=== PATIENT | male | born 1945 | race Caucasian/White ===

== ENCOUNTER → 2021-03-02 11:28 | Outpatient (CLI) | payer OTHER, SELFPAY ==
--- NOTE | ~2021-03-02 | XR_ITS ---
EXAMINATION: XR knee LT min 4V DATE: 03/02/2021 12:04 INDICATION: Left knee pain TECHNIQUE: Four views of the left knee were obtained. COMPARISON: None. FINDINGS: Alignment is normal. No fracture or osteochondral lesion. There is advanced osteoarthritis of the medial and patellofemoral compartments. A small joint effusion is present. Soft tissues are un remarkable. IMPRESSION: 1. 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 Reviewed, dictated and finalized at location A.
== END ==
PROVIDERS: PCP Family Medicine Adolescent Medicine; Visit Provider Family Medicine Adolescent Medicine
DX: M17.12 Unilateral primary osteoarthritis, left knee (principal)
CPT/HCPCS: 73564

== ENCOUNTER 2021-03-30 09:42 | Emergency (ER) | payer OTHER, SELFPAY ==
--- NOTE | ~2021-03-30 | XR_ITS ---
EXAMINATION: XR chest 2V DATE: 03/30/2021 10:24 INDICATION: Central chest pain. TECHNIQUE: Frontal and lateral views of the chest were obtained. COMPARISON: Chest 2 views 10/09/2017, chest CT 10/09/2017 FINDINGS: The chest demonstrates clear lungs without pneumonia, pleural effusion, or pneumothorax. Th e heart size is normal. IMPRESSION: 1. No acute cardiopulmonary disease. Reviewed, dictated and finalized at location A.
--- NOTE | 2021-03-30 09:47 | ECG_ITS ---
Measurements Intervals [place] Rate: 60 P: 34 ID: [id number] QRS: -34 QRSD: 98 T: 21 QT: 400 QTc: 400 Interpretive Statements SINUS RHYTHM LEFT AXIS DEVIATION INCOMPLETE RIGHT BUNDLE BRANCH BLOCK BORDERLINE ECG Electronically Signed On 03-30-2021 14:53:35 CDT by Sánchez Kellogg D.O.
[2021-03-30 09:54] VITALS: BP 140/69; PULSE 65; RESP 14; TEMP 36.1; O2SAT 97
[2021-03-30 10:19] LABS: Basophils Percent Auto 0.5 % (0.2-1.2); Eosinophils Absolute Auto 0.3 K/mm3 (0-0.3); Eosinophils Percent Auto 5.1 % (0-4.4); Hematocrit 46.4 % (42.0-52.0); Hemoglobin 15.6 g/dL (14.0-18.0); Immature Granulocyte Absolute 0.01 K/mm3 (0.00-0.031); Immature Granulocyte Percent A 0.2 % (0-0.5); Lymphocytes Absolute Auto 2.05 K/mm3 (0.9-3.2); Lymphocytes Percent Auto 33.8 % (18.3-44.2); Mean Corpuscular HGB Conc 33.6 g/dl (32-36); Mean Corpuscular Volume 89.2 fl (80-100); Mean Platelet Volume 9.6 fl (7.4-10.4); Monocytes Absolute Auto 0.5 K/mm3 (0.1-0.6); Monocytes Percent Auto 7.8 % (2.6-8.5); Neutrophils Absolute Auto 3.2 K/mm3 (1.3-6.7); Neutrophils Percent Auto 52.6 % (45.5-73.1); Platelet Count Result 218 k/mm3 (150-375); White Blood Count 6.1 K/mm3 (4.5-10.0)
[2021-03-30 10:27] LABS: Anion Gap 9 mmol/L (8-16); Blood Urea Nitrogen 15 mg/dL (9-20); Calcium 8.9 mg/dL (8.4-10.2); Carbon Dioxide 23 mmol/L (22-30); Chloride 106 mmol/L (98-107); Estimated CRCL calculation 85 ml/min; Estimated Glomerular Filt Rate > 60; Glucose 135 mg/dL (65-110); Sodium 138 mmol/L (137-145)
[2021-03-30 10:31] LABS: INR 0.9; Prothrombin Time 11.8 Seconds (11.1-14.7)
[2021-03-30 10:38] LABS: Troponin I < 0.012 ng/mL (0.000-0.034)
[2021-03-30 12:24] VITALS: BP 155/80; PULSE 55; RESP 14; O2SAT 99
[2021-03-30 12:28] VITALS: BP 186/77; PULSE 54; RESP 18; TEMP 36.7; O2SAT 100
--- NOTE | 2021-03-30 12:34 | ED.CHESTPAIN ---
HPI - Chest Pain General Chief Complaint: Chest Pain Stated Complaint: Chest pain Time Seen by Provider: 03/30/21 12:33 History of Present Illness HPI narrative: 75 yo male w/ h/o CAD presents to the ED c/o chest pain. Dull chest pain since the middle of the night. Mild. No radiation. Does not change with exertion. Does not feel like previous anginal pain. No SOB, nausea, diaphoresis. He took aspirin prior to coming in. Related Data Allergies Allergy/AdvReac Type Severity Reaction Status Date / Time No Known Allergies Allergy Verified 03/30/21 12:27 Review of Systems Review of Systems: All systems reviewed & are unremarkable except as noted in HPI and below Constitutional: Constitutional: Denies chills and Denies fever(s) Cardiovascular: Cardiovascular: Reports as per HPI Respiratory: Respiratory: Denies dyspnea Gastrointestinal: Gastrointestinal: Denies nausea Genitourinary: Genitourinary: Reports no additional male genitourinary complaints Musculoskeletal: Musculoskeletal: Denies back pain Neurologic: Reports system reviewed and no additional complaints, except as documented [facility] Past Medical History Medical History (Updated 03/31/21 @ 00:00 by Palak Sharma) CAD (coronary artery disease) Surgical History Surgical History (Updated 03/30/21 @ 13:08 by Enrique Alarcon MD) History of coronary artery stent placement Family History Family History (Updated 09/09/16 @ 07:55 by DOCTOR UNKNOWN) Mother Family history of arthritis Family history of malignant neoplasm Father Family history of malignant neoplasm Social History Social History Smoking status: Never smoker Alcohol intake: current Exam Const: General: healthy appearing, no acute distress and alert Orientation/consciousness: patient oriented x3 HENMT: Head: normal to inspection Neck: Neck: normal visual inspection Chest: Chest palpation & inspection: no tenderness Resp: Effort & Inspection: normal respiratory effort Auscultation: clear to auscultation bilaterally, no rales, no rhonchi and no wheezes Cardio: Jugular venous distension: no JVD Rate: regular rate Rhythm: regular rhythm Heart sounds: no murmurs GI: Inspection: non-distended GI Palp: Yes Soft to palpation and No Tenderness to palpation present (GI) Skin: General skin exam: normal color Neuro: General: patient oriented x3 and moves all extremities Speech: normal speech Extrem: General: no edema Psych: Appearance: well kempt Affect: normal affect Course Vital Signs Vital signs: Vital Signs Temperature 36.1 C L 03/30/21 09:54 Pulse Rate 65 03/30/21 09:54 Respiratory Rate 14 03/30/21 09:54 Blood Pressure 140/69 03/30/21 09:54 Pulse Oximetry 97 03/30/21 09:54 Temperature 36.7 C 03/30/21 12:28 Pulse Rate 58 L 03/30/21 14:23 Respiratory Rate 18 03/30/21 14:23 Blood Pressure 142/73 H 03/30/21 14:23 Pulse Oximetry 98 03/30/21 14:23 MDM - Chest Pain MDM Narrative Medical decision making narrative: Pain is atypical. EKG shows no acute changes. Troponin negative x2. Pateint discussed with cardiology. The do not think he he would benefit form admission. They will contact him next week to figure out follow up Lab Data Result diagrams: 03/30/21 10:01 03/30/21 10:01 Labs: Lab Results 03/30/21 03/30/21 03/30/21 Range/Units 10:01 10:01 10:01 WBC 6.1 (4.5-10.0) K/mm3 RBC 5.20 (4.6-6.20) M/mm3 Hgb 15.6 (14.0-18.0) g/dL Hct 46.4 (42.0-52.0) % MCV 89.2 (80-100) fl MCH 30.0 (26-34) pg MCHC 33.6 (32-36) g/dl RDW 12.0 (11.5-14.5) % Plt Count 218 (150-375) k/mm3 MPV 9.6 (7.4-10.4) fl Immature Gran % (Auto) 0.2 (0-0.5) % Neut % (Auto) 52.6 (45.5-73.1) % Lymph % (Auto) 33.8 (18.3-44.2) % [place] % (Auto) 7.8 (2.6-8.5) % Eos % (Auto) 5.1 H (0-4.4) % Baso % (Auto) 0.5 (0.2-1.2) % Lymph # (Auto)
[2021-03-30] MEDS: NITROGLYCERIN SL 0.4 MG TABLET SUBLINGUAL (13:09)
[2021-03-30 13:38] LABS: Troponin I < 0.012 ng/mL (0.000-0.034)
--- NOTE | 2021-03-30 14:03 | PC.NURSE ---
patient reports no change in pain after nitro
[2021-03-30 14:23] VITALS: BP 142/73; PULSE 58; RESP 18; O2SAT 98
== END 2021-03-30 14:25 | disposition home or self-care (01) ==
PROVIDERS: Family Medicine; Emergency Provider Emergency Medicine; PCP Family Medicine Adolescent Medicine
DX: R07.89 Other chest pain (principal); I25.10 Atherosclerotic heart disease of native coronary artery without angina pectoris; Z95.5 Presence of coronary angioplasty implant and graft; I45.10 Unspecified right bundle-branch block
CPT/HCPCS: 36415; 71046; 80048; 84484; 85025; 85610; 85730; 93005; 99284; A9270

== ENCOUNTER 2021-08-03 11:57 | Outpatient (CLI) | payer OTHER, SELFPAY ==
[2021-08-03 12:58] LABS: Basophils Percent Auto 0.4 % (0.2-1.2); Eosinophils Absolute Auto 0.3 K/mm3 (0-0.3); Eosinophils Percent Auto 3.8 % (0-4.4); Hematocrit 46.4 % (42.0-52.0); Immature Granulocyte Absolute 0.01 K/mm3 (0.00-0.031); Immature Granulocyte Percent A 0.1 % (0-0.5); Lymphocytes Absolute Auto 2.37 K/mm3 (0.9-3.2); Lymphocytes Percent Auto 32.3 % (18.3-44.2); Mean Corpuscular HGB Conc 34.5 g/dl (32-36); Mean Corpuscular Hemoglobin 31.1 pg (26-34); Mean Corpuscular Volume 90.3 fl (80-100); Monocytes Absolute Auto 0.6 K/mm3 (0.1-0.6); Monocytes Percent Auto 8.2 % (2.6-8.5); Neutrophils Absolute Auto 4.1 K/mm3 (1.3-6.7); Neutrophils Percent Auto 55.2 % (45.5-73.1); Platelet Count Result 174 k/mm3 (150-375); Red Blood Count 5.14 M/mm3 (4.6-6.20); Red Cell Distribution Width 11.9 % (11.5-14.5); White Blood Count 7.3 K/mm3 (4.5-10.0)
[2021-08-03 13:01] LABS: Add Urine Microscopic? NO; Appearance Urine Clear (Clear); Bilirubin Urine Negative (Negative); Blood Urine Negative (Negative); Color Urine Yellow (Yellow); Glucose Urine UA Negative (Negative); Ketones Urine Negative (Negative); Leukocyte Esterase Ur Negative LEU/UL (Negative); Nitrate Urine Negative (Negative); Protein Urine Negative (Negative); Specific Grav Ur 1.015 (1.001-1.035); Urobilinogen Urine Negative mg/dL (<2.0)
[2021-08-03 13:12] LABS: Urine Cotinine NEGATIVE
[2021-08-03 13:14] LABS: Prothrombin Time 12.6 Seconds (11.1-14.7)
[2021-08-03 13:15] LABS: Partial Thromboplastin Time 25.4 SECONDS (22.3-36.8)
[2021-08-03 13:17] LABS: Albumin Level 4.3 g/dL (3.5-5.1); Anion Gap 9 mmol/L (8-16); Blood Urea Nitrogen 14 mg/dL (9-20); Calcium 9.3 mg/dL (8.4-10.2); Carbon Dioxide 24 mmol/L (22-30); Chloride 105 mmol/L (98-107); Estimated Glomerular Filt Rate > 60; Glucose 115 mg/dL (65-110); Hemoglobin A1C 5.6 % (<5.7); Sodium 138 mmol/L (137-145)
== END 2021-08-03 11:58 | disposition home or self-care (01) ==
LOC: ANHSURGERY 11:59
PROVIDERS: PCP Family Medicine Adolescent Medicine; Visit Provider Orthopaedic Surgery
DX: M17.12 Unilateral primary osteoarthritis, left knee (principal); Z01.818 Encounter for other preprocedural examination
CPT/HCPCS: 80048; 80307; 81003; 82040; 83036; 85025; 85610; 85730; 86850; 86900; 86901; 87081

== ENCOUNTER 2021-08-12 00:01 | Day surgery (SDC) | payer OTHER, SELFPAY ==
[2021-08-03 12:03] VITALS: BMI 31.0
--- NOTE | 2021-08-03 12:19 | PC.NURSE ---
Report to the Outpatient Waiting Room, entrance under the green pavilion located off [facility], at time __0830____ on date 08/12/21 . OR Time: _1030 . - You and your visitor will be asked a series of questions to screen for COVID 19 for your protection. - A mask is required within the hospital. - Only one visitor is allowed at this time. Patient visitors will be guided where to wait when not with patient. Preoperative COVID Testing Requirements: No COVID Test needed if: (proof is required; if not received patient will have Rapid Test prior to entry) - Patient has received COVID Vaccine at least 14 days prior to procedure date or - Patient has positive COVID test result within last 90 days of surgery date. COVID Test needed if above criteria is not met If not COVID vaccinated a COVID test must be conducted within 72 hours of surgery and patient is asked to isolate self from time of testing until procedure. You will go to the [facility] for your COVID testing. The [facility] is located at the corner of [address] [facility]. You will only be called if COVID results are positive and your surgeon may reschedule your elective surgery date. Patients may have clear liquids (water, carbonated beverages, clear teas, apple juice) until 3 hours prior to surgery with a maximum of 20 ounces. - No food from midnight until time of surgery - Infants may have breast milk until 4 hours before surgery, formula 6 hours prior to surgery. - Children will be allowed to drink immediately following surgery. If applicable, please bring a bottle or sippy cup to assist with drinking. Juice, water, soda, and popsicles are readily available. For infants on formula, please bring formula the day of surgery. Pacifiers are allowed. Take the following medications with a SIP of water the morning of surgery: __NONE Medications to discontinue per physician ____PT STATES ASPIRIN AND IBUPROFEN 7 DAYS PRE OP PER DR FITZGERALD. ALL VITAMINS AND SUPPLEMENTS 3 DAYS PRE OP Date to take last dose__ASPIRIN AND IBUPROFEN 08/04/21 AND VITAMINS AND SUPPLEMENTS 08/08/21 Please no make-up, nail occitan, hairspray, perfume, deodorant, or body powder the day of surgery. No jewelry (including any body piercings) or valuables the day of surgery, leave them at home. Please take a shower or bath the night before, or the morning of, surgery with an antibacterial soap. Wear comfortable, loose fitting clothing. Children are encouraged to wear pajamas. - Jewelry must be removed prior to entering the operating room. Rings and piercings that are not removed may be cut off. - The hospital will not accept responsibility for valuables. - Please leave all valuables, including medications, at home the day of surgery. If you are going home after surgery, a licensed piledriver carpenter must drive you home. - NO public transportation without another adult. - We recommend that an adult stay with you for 24 hours following discharge. - We also recommend that you do not drive, make important decision, drink alcoholic beverages, or take any drugs that were not prescribed by your health care provider for at least 24 hours after your discharge time. For Pediatric surgeries, we recommend two adults accompany the child home (only one inside the building at this time). Follow any additional instructions given to you from your surgeon. VERBAL instructions given to __PATIENT and asked if any additional questions and then verbalized understanding. Patient advised to call surgeon office or pre surgery nurse liaison [phone] if any additional questions.
[2021-08-03 12:34] VITALS: BP 156/79; PULSE 75; RESP 16; TEMP 37.2; O2SAT 97
[2021-08-12] VITALS (15 sets, daily range): BP systolic 126–147; BP diastolic 65–75; PULSE 69–92; RESP 10–20; TEMP 35.6–37; O2SAT 90–100; BMI 30.6
--- NOTE | ~2021-08-12 | XR_ITS ---
XR knee LT 2V DATE: 08/12/2021 13:25 INDICATION: Left total knee replacement TECHNIQUE: Postoperative AP and lateral views COMPARISON: 08/03/2021 left knee FINDINGS: Status post left knee arthroplasty without patellar resurfacing. There is expected postoper ative subcutaneous and intra-articular gas. No fracture or dislocation, periosteal reaction or bone d estruction. Анна are noted along the anterior aspect of the knee. IMPRESSION: Left knee arthroplasty Reviewed, dictated and finalized at location A. RUCTIONAL COORDINATOR IMPRESSION: Left knee arthroplasty
--- NOTE | 2021-08-12 07:14 | WPDHPUPDATE1 ---
History and Physical Update Update Date/Time: 08/12/21 07:14 History and Physical has been reviewed, including an updated exam of the patient. There are NO changes in the patient's condition. Risks, benefits, and alternatives have been discussed and questions answered. Patient agrees to proceed with procedure.
[2021-08-12] MEDS: ACETAMINOPHEN 500 MG TABLET 1000 MG PO (08:52)
[2021-08-12] MEDS: LACTATED RINGERS 1,000 ML 30 ML IV CONT (09:02)
[2021-08-12] MEDS: TRANEXAMIC ACID 1,000MG/ISO100 1,000 MG/100 ML BAG 200 MG IVPB (09:26)
--- NOTE | 2021-08-12 09:31 | WPDANESEPPF ---
Anes - Initial Pre Proc Eval Procedure: Operation Date: 08/12/21 10:30 Proposed Procedures p Left Total Knee Arthroplasty - Chico Gonzales MD Date/Time: 08/12/21 09:31 Surgeon: Chico Gonzales MD Pre Op Diagnosis: left knee DJD Patient Data Age: 75 Gender: M Height: 1.8 m Weight: 99.5 kg Last Vital Signs Temp 36.4 C 08/12/21 09:22 Pulse 69 08/12/21 09:22 Resp 16 08/03/21 12:34 BP 146/72 H 08/12/21 09:22 Pulse Ox 97 08/12/21 09:22 Allergies Allergy/AdvReac Type Severity Reaction Status Date / Time No Known Allergies Allergy Verified 08/12/21 08:50 Home Medications Medication Instructions Recorded Confirmed Type atorvastatin 80 mg tablet 80 mg PO HS 04/24/21 08/12/21 History aspirin 81 mg tablet,delayed 81 mg PO HS 08/03/21 08/12/21 History release coenzyme Q10 100 mg capsule 100 mg PO DAILY 08/03/21 08/12/21 History ibuprofen 200 mg tablet 200 mg PO Q6H PRN 08/03/21 08/12/21 History multivitamin 1 tablet PO DAILY 08/03/21 08/12/21 History chlorhexidine gluconate 4 % 1 applic TOPICAL ONCE #237 ml 08/05/21 Rx topical liquid Patient hx anesthesia problems: none Family hx anesthesia problems: none Results Review: All pre-operative results and documents have been reviewed as part of the pre-operative evaluation. [facility] Past Medical History Medical History (Updated 08/12/21 @ 09:32 by Pascual Oviedo DO) CAD (coronary artery disease) Hyperlipidemia Surgical History Surgical History (Updated 08/12/21 @ 09:36 by Pascual Oviedo DO) History of coronary artery stent placement x3, 2019 Family History Family History Mother Family history of arthritis Family history of malignant neoplasm Father Family history of malignant neoplasm Social History Social History (Updated 04/23/21 @ 14:23 by Delia Gusman MA) Smoking status: Never smoker Additional smoking assessment comments: DENIES ANY FORM OF TOBACCO USE Alcohol intake: current Substance use: never Living arrangements: with family Gender identity (if verbalized by the patient): Male Spiritual care concerns: No Anes - Eval Final PreProcedure Day of Procedure 08/12/21 09:31 Patient weight: obese Heart: regular rate and rhythm Lungs: clear to auscultation and normal air movement Airway: Mallampati scale class II Neurological: alert and oriented Last oral intake: >/= 8 hours ASA classification: III Emergent: no Anesthetic plan: proceed Anesthesia type and monitoring: general LMA and standard monitoring Results Review: All pre-operative results and documents have been reviewed as part of the pre-operative evaluation. Informed Consent: The patient's anesthetic plan and its attendant risks and benefits were discussed with the patient/family/POA. Questions were solicited and answers provided to the satisfaction of the patient/family/POA.
--- NOTE | 2021-08-12 10:10 | WPDANESPNB ---
Anes - Peripheral Nerve Block Date/Time: 08/12/21 10:10 I have discussed with the patient/family/POA the placement of a peripheral nerve block for post-operative pain management, including associated risks, benefits, complications, and side effects. Alternative methods of post-operative analgesia were detailed. Questions were solicited and answers provided to the satisfaction of the patient/family/POA. Time-Out: A pre-procedural Time-Out was completed immediately before starting the procedure and confirmed: Patient Identification, Site, Procedure, Patient Position and the Availability of Requisite Equipment. Clinical Indications: Acute post-operative pain management requested by the operative surgeon. Nerve Block Insertion Note Anes-nerve block: adductor canal left Patient position: supine Skin prep: chlorhexidine Needle: 22 gauge, stimulating, insulated echogenic needle. Needle length: 80 mm Technique: ultrasound Injectate: bupivacaine 0.5% with epi 5 mcg/ml (30cc - no epi) Observations: tolerated well Complications: none Procedure start time:: 1005 Procedure end time:: 1008
[2021-08-12] MEDS: ceFAZolin 2 GM/D5W 50 ML 2 GM/50 ML BAG IVPB ×2 (10:32→17:53)
[2021-08-12] MEDS: TRANEXAMIC ACID 1,000 MG/10 ML AMPUL 1000 MG IV PUSH (12:25)
--- NOTE | 2021-08-12 13:57 | W.PM.PROC2 ---
Procedure Note - Detailed Date of Procedure 08/12/21 Pre-op Diagnosis left knee DJD Post-op Diagnosis same Procedure Performed L TKA Surgeon Chico Gonzales MD Anesthesia general Description of Procedure THE LEFT KNEE WAS PREPPED AND DRAPED IN THE STERILE FASHION. A MIDLINE SKIN INCISION WAS MADE. A MEDIAL PARAPATELLAR ARTHROTOMY WAS MADE. THE PATELLA WAS EVERTED. THERE WAS TRICOMPARTMENT DJD. THERE WAS MINIMAL PATELLA DJD. AN INTRAMEDULLARY SALO WAS PLACED IN THE FEMUR. A DISTAL FEMORAL CUT WAS MADE IN 5 DEGREES OF VALGUS REMOVING APPROXIMATELY 9 MM OF BONE FROM THE DISTAL FEMUR. THE FEMUR WAS SIZED TO 70. A 70 FEMORAL CUTTING BLOCK WAS PLACED IN 3 DEGREES OF EXTERNAL ROTATION AND IN ALIGNMENT WITH MARION'S LINE AND THE TRANSEPICONDYLAR AXIS. ANTERIOR POSTERIOR AND CHAMFER CUTS WERE MADE. THE CUTS WERE EXCELLENT. NEXT AN INTRAMEDULLARY CUTTING GUIDE WAS PLACED IN THE TIBIA. A TRANS TIBIAL CUT WAS MADE ALONG THE LONG AXIS OF THE TIBIA. APPROXIMATELY 10 MM OF BONE WAS REMOVED FROM THE HIGH SIDE OF THE TIBIA. THE TIBIA WAS THEN PLANED TO A SMOOTH SURFACE. POSTERIOR FEMORAL OSTEOPHYTES WERE REMOVED FROM THE FEMORAL CONDYLES. A 75 TIBIAL TRIAL WAS PLACED IN ALIGNMENT WITH THE 1/3 MEDIAL ASPECT OF THE TIBIAL TUBERCLE. THEN A 70 FEMORAL TRIAL COMPONENT WAS PLACED. BOTH HAD EXCELLENT FITS. EVENTUALLY A 10 MM CR POLYETHYLENE TRIAL COMPONENT WAS PLACED. THE KNEE WAS TAKEN THROUGH A RANGE OF MOTION. THE KNEE CAME OUT TO FULL EXTENSION. THERE WAS NO ABNORMAL TILT TO THE PATELLA. THERE WAS GOOD A/P AND VARUS/VALGUS STABILITY. THERE WAS NO EXCESSIVE ROLL BACK WITH FLEXION. THE TRIAL COMPONENTS WERE REMOVED. THEN A 65 FEMORAL COMPONENT AND 75 TIBIAL COMPONENT WITH A 10 CR POLYETHYLENE COMPONENT WERE CEMENTED INTO PLACE. ONCE THE CEMENT WAS HARD THE KNEE WAS TAKEN THROUGH A ROM AGAIN AND FOUND TO BE STABLE WITH NO PATELLA TILT NO EXCESSIVE ROLL BACK WITH FLEXION AND GOOD STABILITY WITH COMPLETE AND FULL EXTENSION. THE KNEE WAS IRRIGATED WITH STERILE BETADINE AND WATER FOR ABOUT 3 MINUTES. THE BLEEDERS WERE CAUTERIZED. THE ARTHROTOMY WAS REPAIRED WITH NUMBER 1 VICRYL. THE SUB CUTANEOUS LAYER WITH 2-0 VICRYL AND THE SKIN WITH YENI. THE WOUND WAS WASHED AND A STERILE DRESSING WAS APPLIED. PATIENT WAS EXTUBATED. Estimated Blood Loss -50.0 Pathology none sent Complications No immediate complications Condition stable Disposition PACU
[2021-08-12] MEDS: fentaNYL CITRATE INJ (*CRX) 100 MCG/2 ML VIAL 25 MCG IV PUSH (14:25)
--- NOTE | 2021-08-12 15:22 | ADMGEN ---
This patient, Bentley Cr, was admitted to [facility]2. Patient oriented to hospital policies and general routines including ID bracelet, bed and alarms, visiting hours, pain management, procedures, bathroom and other care routines, personal items, smoking policy, room service/diet, and visiting hours. Information on how to activate the Rapid Response Team has been discussed. Patient are encouraged to report perceived risks to care and to ask questions if they do not understand what they are told or what they should do.
[2021-08-12] MEDS: SODIUM CHLORIDE 0.9% IV 1,000 ML 125 ML IV CONT (15:34)
[2021-08-12] MEDS: SENNA/DOCUSATE SODIUM TABLET 2 TAB PO (17:51)
[2021-08-12] MEDS: CELECOXIB 200 MG CAPSULE PO (17:51)
[2021-08-12] MEDS: ATORVASTATIN 40 MG TABLET 80 MG PO (20:38)
[2021-08-12] MEDS: ASPIRIN 325 MG ENTERIC TABLET PO (20:39)
[2021-08-13 00:41] VITALS: BP 124/75; PULSE 91; RESP 18; TEMP 35.7; O2SAT 96
[2021-08-13] MEDS: ceFAZolin 2 GM/D5W 50 ML 2 GM/50 ML BAG IVPB ×2 (02:38→09:50)
[2021-08-13 04:41] VITALS: BP 133/68; PULSE 72; RESP 18; TEMP 36.2; O2SAT 96
[2021-08-13 06:15] LABS: Basophils Percent Auto 0.1 % (0.2-1.2); Hematocrit 39.9 % (42.0-52.0); Immature Granulocyte Absolute 0.17 K/mm3 (0.00-0.031); Immature Granulocyte Percent A 0.9 % (0-0.5); Lymphocytes Absolute Auto 1.51 K/mm3 (0.9-3.2); Lymphocytes Percent Auto 8.2 % (18.3-44.2); Mean Corpuscular HGB Conc 35.1 g/dl (32-36); Mean Corpuscular Hemoglobin 31.3 pg (26-34); Mean Corpuscular Volume 89.1 fl (80-100); Mean Platelet Volume 9.1 fl (7.4-10.4); Monocytes Absolute Auto 1.3 K/mm3 (0.1-0.6); Monocytes Percent Auto 7.3 % (2.6-8.5); Neutrophils Absolute Auto 15.4 K/mm3 (1.3-6.7); Neutrophils Percent Auto 83.5 % (45.5-73.1); Platelet Count Result 180 k/mm3 (150-375); Red Blood Count 4.48 M/mm3 (4.6-6.20); Red Cell Distribution Width 11.7 % (11.5-14.5); White Blood Count 18.4 K/mm3 (4.5-10.0)
[2021-08-13 06:30] LABS: Anion Gap 8 mmol/L (8-16); Blood Urea Nitrogen 17 mg/dL (9-20); Calcium 8.8 mg/dL (8.4-10.2); Carbon Dioxide 24 mmol/L (22-30); Chloride 101 mmol/L (98-107); Estimated CRCL calculation 86 ml/min; Estimated Glomerular Filt Rate > 60; Glucose 149 mg/dL (65-110); Potassium 4.1 mmol/L (3.4-5.0); Sodium 133 mmol/L (137-145)
[2021-08-13 08:00] VITALS: PULSE 88; RESP 18; O2SAT 95
[2021-08-13] MEDS: SENNA/DOCUSATE SODIUM TABLET 2 TAB PO (08:21)
[2021-08-13] MEDS: CELECOXIB 200 MG CAPSULE PO (08:21)
[2021-08-13] MEDS: ASPIRIN 325 MG ENTERIC TABLET PO (08:21)
[2021-08-13] MEDS: MULTIVITAMINS THERAPEUTIC TAB (*BKC) 1 TABLET PO (08:22)
[2021-08-13] MEDS: polyethylene glycoL 3350 17 GM POWD.PACK PO (08:31)
[2021-08-13 08:44] VITALS: BP 140/69; PULSE 88; RESP 18; TEMP 36.6; O2SAT 95
--- NOTE | 2021-08-13 13:21 | PM.PNORT ---
Progress Note: A&P Additional Plan POD 1 DOING WELL. OK TO DC HOME F/U IN 3 WEEKS. Subjective Subjective Date/Time Seen: 08/13/21 13:2POD 1 DOING WELL. NO CALF PAIN. PAIN CONTROLLED PASSED PT. Exam Extrem: Other: VSS AFEBRILE DRESSING DRY NV INTACT NEG HOMANS SIGN CLAF SOFT NON TENDER Objective Data Vital Signs Vital Signs: Vital Signs - 24 hr 08/12/21 13:30 08/12/21 13:45 08/12/21 14:00 Temperature Pulse Rate 76 72 70 Respiratory Rate 10 L 11 L 12 Blood Pressure 133/74 140/72 142/70 H Pulse Oximetry 100 98 98 08/12/21 14:15 08/12/21 14:25 08/12/21 14:40 Temperature Pulse Rate 71 75 75 Respiratory Rate 10 L 12 12 Blood Pressure 143/67 H 140/75 142/74 H Pulse Oximetry 99 94 98 08/12/21 14:45 08/12/21 15:05 08/12/21 16:30 Temperature 37.0 C 36.8 C Pulse Rate 73 72 72 Respiratory Rate 14 18 16 Blood Pressure 140/73 136/73 147/66 H Pulse Oximetry 99 90 94 08/12/21 18:00 08/12/21 20:41 08/12/21 22:00 Temperature 36.9 C 36.3 C L 35.6 C L Pulse Rate 81 88 92 Respiratory Rate 16 18 20 Blood Pressure 132/65 142/75 H 140/70 Pulse Oximetry 95 95 95 08/13/21 00:41 08/13/21 04:41 08/13/21 08:00 Temperature 35.7 C L 36.2 C L Pulse Rate 91 72 88 Respiratory Rate 18 18 18 Blood Pressure 124/75 133/68 Pulse Oximetry 96 96 95 08/13/21 08:44 Temperature 36.6 C Pulse Rate 88 Respiratory Rate 18 Blood Pressure 140/69 Pulse Oximetry 95 Intake/Output Intake/Output: Intake & Output 08/10/21 08/11/21 08/12/21 08/13/21 23:59 23:59 23:59 23:59 Intake Total 1319 2020 Output Total 175 1150 Balance 1144 870 Meds/Results Medications: Active Medications Generic Name Dose Route Start Last Admin Trade Name Freq PRN Reason Stop Dose Admin Aspirin 325 mg 08/12/21 21:00 08/13/21 08:21 Aspirin 325 Mg Enteric Tablet PO 325 mg Q12HR STACY Administration Atorvastatin Calcium 80 mg 08/12/21 21:00 08/12/21 20:38 Atorvastatin 40 Mg Tablet PO 80 mg HS STACY Administration Celecoxib 200 mg 08/12/21 17:00 08/13/21 08:21 Celecoxib 200 Mg Capsule PO 200 mg BIDWM STACY Administration Diazepam 5 mg 08/12/21 14:56 Diazepam (*Crx) 5 Mg Tablet PO Q8H PRN Spasms Diphenhydramine HCl 25 mg 08/12/21 14:56 Diphenhydramine Hcl Inj 50 Mg/Ml Vial IV PUSH Q6H PRN Itching Multivitamins Therapeutic 1 tablet 08/13/21 09:00 08/13/21 08:22 Multivitamins Therapeutic Tab (*Bkc) PO 1 tablet DAILY STACY Administration Naloxone HCl 0.1 mg 08/12/21 14:56 Naloxone Hcl 0.4 Mg/Ml Vial IV PUSH Q2M PRN Opiate Reversal Ondansetron HCl 4 mg 08/12/21 14:56 Ondansetron Inj 4 Mg/2 Ml Vial IV PUSH Q4H PRN Nausea And Vomiting Oxycodone HCl 7.5 mg 08/12/21 14:56 Oxycodone Hcl (*Crx) 2.5 Mg Tab Ir PO Q4H PRN Pain Rated 7-10 Oxycodone/Acetaminophen 1 tablet 08/12/21 14:56 Oxycodone/Acetaminophen (*Crx) 5-325 Mg Tablet PO Q4H PRN Pain Rated 4-6 Polyethylene Glycol 17 gm 08/13/21 09:00 08/13/21 08:31 Polyethylene Glycol 3350 17 Gm Powd.Pack PO 17 gm QAM STACY Administration Senna/Docusate Sodium 2 tab 08/12/21 17:00 08/13/21 08:21 Senna/Docusate Sodium Tablet PO 2 tab BID STACY Administration Radiology Results: ITS Impressions Knee X-Ray 08/12/21 13:32 IMPRESSION: Left knee arthroplasty Labs Labs: Laboratory Results - last 24 hr 08/13/21 08/13/21 05:59 05:59 WBC 18.4 H RBC 4.48 L Hgb 14.0 Hct 39.9 L MCV 89.1 MCH 31.3 MCHC 35.1 RDW 11.7 Plt Count 180 MPV 9.1 Immature Gran % (Auto) 0.9 H Neut % (Auto) 83.5 H Lymph % (Auto) 8.2 L [place] % (Auto) 7.3 Eos % (Auto) 0.0 Baso % (Auto) 0.1 L Lymph # (Auto) 1.51 [place] # (Auto) 1.3 H Eos # (Auto) 0.0 Baso # (Auto) 0.0 Abs Immat Gran (auto) 0.17 H Absolute Neuts (auto) 15.4 H Absolute Nucleated RBC 0.0 Nucleated RBC % 0.0 Sodium 133 L [place]
--- NOTE | 2021-08-13 13:23 | PM.DS ---
DS: Admitting Diagnosis Discharge Date 08/13/22 Admitting Diagnosis LEFT KNEE PAIN/DJD DS: Discharge Diagnosis Discharge Diagnosis (1) Left knee DJD: Qualifiers: Osteoarthritis type: primary Qualified Code(s): M17.12 - Unilateral primary osteoarthritis, left knee Code(s): M17.12 - Unilateral primary osteoarthritis, left knee Status: Acute DS: Summary Hospital Course Reason for hospitalization: L TKA Hospital Course: PATIENT UNDERWENT LEFT TKA FOR SEVERE DJD. HE HAD NO COMPLICATIONS. HE HAD ASA FOR DVT PROPHYLAXIS. HE DID WELL WITH PT. HE HAD A REGULAR DIET. ON POD 1 HE WAS STABLE FOR DISCHARGE. HE WOULD BE DISCHARGED TO HOME WITH HOME CARE. HE WAS STABLE. HE WOULD CONTINUE ASA FOR DVT PROPHYLAXIS. HE WOULD HAVE WOUND CARE PER NURSING. HE WILL F/U IN 3 WEEKS. Time spent discussing smoking cessation with patient: 3 to 10 minutes Status at Discharge Functional status at discharge: uses cane/walker Time Spent with Patient Time attestation: Total time spent providing and/or coordinating discharge services: Time spent: Less than 30 minutes DS: Data Data Completed and Pending Labs on day of discharge: Labs from last 24 hours 08/13/21 08/13/21 05:59 05:59 WBC 18.4 H RBC 4.48 L Hgb 14.0 Hct 39.9 L MCV 89.1 MCH 31.3 MCHC 35.1 RDW 11.7 Plt Count 180 MPV 9.1 Immature Gran % (Auto) 0.9 H Neut % (Auto) 83.5 H Lymph % (Auto) 8.2 L [place] % (Auto) 7.3 Eos % (Auto) 0.0 Baso % (Auto) 0.1 L Lymph # (Auto) 1.51 [place] # (Auto) 1.3 H Eos # (Auto) 0.0 Baso # (Auto) 0.0 Abs Immat Gran (auto) 0.17 H Absolute Neuts (auto) 15.4 H Absolute Nucleated RBC 0.0 Nucleated RBC % 0.0 Sodium 133 L Potassium 4.1 Chloride 101 Carbon Dioxide 24 Anion Gap 8 BUN 17 Creatinine 0.80 Estim Creat Clear Calc 86 Estimated GFR > 60 Glucose 149 H Calcium 8.8 Discharge Plan Discharge Patient Disposition: Home Health Service Discharge Instructions: Per care Coordination, patient to discharge with [facility] ([phone]) for PT/OT and half-way services. Patient Instructions: Antibiotic Form Stand Alone Forms: General Discharge Information, General Discharge Instructions Discharge Medications: No Action atorvastatin 80 mg tablet 80 mg PO HS RF: 0 coenzyme Q10 100 mg capsule 100 mg PO DAILY RF: 0 aspirin 81 mg tablet,delayed release (DR/EC) 81 mg PO HS RF: 0 ibuprofen 200 mg tablet 200 mg PO Q6H PRN (Reason: Pain) RF: 0 multivitamin Tablet 1 tablet PO DAILY RF: 0
== END 2021-08-13 14:05 | disposition home health service (06) ==
LOC: ANHSURGERY 09:16 → ANHSUROVER 14:57
PROVIDERS: PCP Family Medicine Adolescent Medicine; Visit Provider Orthopaedic Surgery
PROC: (CPT 27447; principal; 2021-08-12 10:30)
DX: M17.12 Unilateral primary osteoarthritis, left knee (principal); G89.18 Other acute postprocedural pain; I25.10 Atherosclerotic heart disease of native coronary artery without angina pectoris; E78.5 Hyperlipidemia, unspecified; Z79.82 Long term (current) use of aspirin; Z95.5 Presence of coronary angioplasty implant and graft; E66.9 Obesity, unspecified; Z68.30 Body mass index [BMI] 30.0-30.9, adult
CPT/HCPCS: 27447; 64447; 36415; 73560; 80048; 80307; 81003; 82040; 83036; 85025; 85610; 85730; 86850; 86900; 86901; 87081; 97110; 97161; 97165; A9270; C1713; C1776; J0171; J0690; J1100; J1885; J2250; J2270; J2370; J2405; J2704; J2795; J3010; J7030; J7120

== ENCOUNTER 2024-01-16 00:41 | Day surgery (SDC) | payer OTHER, SELFPAY ==
[2023-12-30 12:46] VITALS: BMI 30.7
[2024-01-16 09:42] VITALS: BP 138/83; PULSE 77; RESP 18; TEMP 36; O2SAT 97; BMI 30.2
[2024-01-16] MEDS: LACTATED RINGERS 1,000 ML 150 ML IV CONT (09:58)
--- NOTE | 2024-01-16 10:36 | WPDANESEPPF ---
Anes - Initial Pre Proc Eval Procedure: Operation Date: 01/16/24 11:00 Proposed Procedures p Colonoscopy - Mehul Rios MD Date/Time: 01/16/24 10:36 Surgeon: Mehul Riso MD Pre Op Diagnosis: Personal history colon polyps Patient Data Age: 78 Gender: M Height: 1.8 m Weight: 98.4 kg Last Vital Signs Temp 96.8 F L 01/16/24 09:42 Pulse 77 01/16/24 09:42 Resp 18 01/16/24 09:42 BP 138/83 01/16/24 09:42 Pulse Ox 97 01/16/24 09:42 O2 Del Method Room Air 01/16/24 09:42 Allergies Allergy/AdvReac Type Severity Reaction Status Date / Time No Known Allergies Allergy Verified 01/16/24 09:48 Home Medications Medication Instructions Recorded Confirmed Type aspirin 81 mg tablet,delayed 81 mg PO HS 08/03/21 01/16/24 History release coenzyme Q10 100 mg capsule 100 mg PO DAILY 08/03/21 01/16/24 History ibuprofen 200 mg tablet 200 mg PO Q6H PRN Pain 08/03/21 01/16/24 History multivitamin 1 tablet PO DAILY 08/03/21 01/16/24 History atorvastatin 80 mg tablet 80 mg PO HS #90 tabs 09/21/23 01/16/24 Rx tadalafil 20 mg tablet 20 mg PO DAILY PRN sexual activity 10/24/23 01/16/24 Rx #10 tabs amoxicillin 500 mg capsule See Rx Instructions .Route 01/09/24 01/16/24 Rx .COMPLEX #4 caps Patient hx anesthesia problems: none Family hx anesthesia problems: none Results Review: All pre-operative results and documents have been reviewed as part of the pre-operative evaluation. 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 Family History Family History Mother Breast cancer Father Leukemia Sibling Heart disease Social History Social History (Updated 06/07/23 @ 08:24 by Sandra Addison CMA) Smoking status: Never smoker Second hand tobacco smoke exposure: No Additional smoking assessment comments: DENIES ANY FORM OF TOBACCO USE Alcohol intake: current Alcohol use details: socially Substance use: never Substance use type: does not use Lack of Transportation: No Lack of Food: Never True Current Housing: I Have Housing Concerned About Future Housing: No Difficulty Paying Gas/Electric Bills: No Difficulty Paying for Meds: No Currently Unemployed: No Education: Associate Degree Difficulty w/ Childcare or Family Care: No Living arrangements: with family Occupation/Education: retired Gender identity (if verbalized by the patient): Male Sexual Orientation (if Verbalized by the Patient): Straight or Heterosexual Spiritual care concerns: No Agree to blood products: Yes Anes - Eval Final PreProcedure Day of Procedure 01/16/24 10:36 Patient weight: obese Heart: regular rate and rhythm Lungs: clear to auscultation Airway: Mallampati scale class II Neurological: alert and oriented Last oral intake: >/= 8 hours ASA classification: III Emergent: no Anesthetic plan: proceed Anesthesia type and monitoring: general GIVS and standard monitoring Results Review: All pre-operative results and documents have been reviewed as part of the pre-operative evaluation. Informed Consent: The patient's anesthetic plan and its attendant risks and benefits were discussed with the patient/family/POA. Questions were solicited and answers provided to the satisfaction of the patient/family/POA.
--- NOTE | 2024-01-16 10:37 | PM.HPGS ---
History of Present Illness History of Present Illness Consent: Risks, benefits, and alternatives have been discussed and questions answered. Patient agrees to proceed with procedure. 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 Family History Family History Mother Breast cancer Father Leukemia Sibling Heart disease Social History Social History (Updated 06/07/23 @ 08:24 by Sandra Addison [facility]) Smoking status: Never smoker Second hand tobacco smoke exposure: No Additional smoking assessment comments: DENIES ANY FORM OF TOBACCO USE Alcohol intake: current Alcohol use details: socially Substance use: never Substance use type: does not use Lack of Transportation: No Lack of Food: Never True Current Housing: I Have Housing Concerned About Future Housing: No Difficulty Paying Gas/Electric Bills: No Difficulty Paying for Meds: No Currently Unemployed: No Education: Associate Degree Difficulty w/ Childcare or Family Care: No Living arrangements: with family Occupation/Education: retired Gender identity (if verbalized by the patient): Male Sexual Orientation (if Verbalized by the Patient): Straight or Heterosexual Spiritual care concerns: No Agree to blood products: Yes Meds Home Medications and Allergies Home Medications Medication Instructions Recorded Confirmed Type aspirin 81 mg tablet,delayed 81 mg PO HS 08/03/21 01/16/24 History release coenzyme Q10 100 mg capsule 100 mg PO DAILY 08/03/21 01/16/24 History ibuprofen 200 mg tablet 200 mg PO Q6H PRN Pain 08/03/21 01/16/24 History multivitamin 1 tablet PO DAILY 08/03/21 01/16/24 History atorvastatin 80 mg tablet 80 mg PO HS #90 tabs 09/21/23 01/16/24 Rx tadalafil 20 mg tablet 20 mg PO DAILY PRN sexual activity 10/24/23 01/16/24 Rx #10 tabs amoxicillin 500 mg capsule See Rx Instructions .Route 01/09/24 01/16/24 Rx .COMPLEX #4 caps Allergies Allergy/AdvReac Type Severity Reaction Status Date / Time No Known Allergies Allergy Verified 01/16/24 09:48 Vital Signs Vital Signs - 24 hr 01/16/24 09:42 Temperature 96.8 F L Pulse Rate 77 Respiratory Rate 18 Blood Pressure 138/83 Pulse Oximetry 97 Oxygen Delivery Room Air Exam Const: General: comfortable and no acute distress HENMT: Face/Nose/Sinus: Normal nares present Eyes: General: appearance normal, both eyes and all related structures Neck: Neck: no JVD Resp: Auscultation: clear to auscultation bilaterally Cardio: Rate: regular rate Rhythm: regular rhythm GI: Inspection: non-distended GI Palp: Yes Soft to palpation Skin: General skin exam: normal color Neuro: General: gait normal Speech: normal speech Extrem: General: normal to inspection Psych: Mental Status: mental status grossly normal Assessment and Plan Assessment and plan (1) Colon polyp: Code(s): K63.5 - Polyp of colon Status: Acute Assessment and Plan: colonoscopy
[2024-01-16 10:58] VITALS: BP 110/66; PULSE 59; RESP 20; O2SAT 96
[2024-01-16 11:08] VITALS: BP 119/61; PULSE 57; RESP 19; O2SAT 99
[2024-01-16 11:18] VITALS: BP 129/67; PULSE 59; RESP 18; O2SAT 97
== END 2024-01-16 11:24 | disposition home or self-care (01) ==
PROVIDERS: PCP Family Medicine Adolescent Medicine; Visit Provider Internal Medicine Gastroenterology
PROC: 0DJD8ZZ Inspection of Lower Intestinal Tract, Via Natural or Artificial Opening Endoscopic (ICD-10-PCS; CPT 45378; principal; 2024-01-16 11:00)
DX: Z12.11 Encounter for screening for malignant neoplasm of colon (principal); D12.0 Benign neoplasm of cecum; D12.2 Benign neoplasm of ascending colon; D12.3 Benign neoplasm of transverse colon; K63.5 Polyp of colon; K64.8 Other hemorrhoids; K57.30 Diverticulosis of large intestine without perforation or abscess without bleeding; I25.10 Atherosclerotic heart disease of native coronary artery without angina pectoris; E78.5 Hyperlipidemia, unspecified; Z95.5 Presence of coronary angioplasty implant and graft; E66.9 Obesity, unspecified; Z68.30 Body mass index [BMI] 30.0-30.9, adult; Z79.82 Long term (current) use of aspirin
CPT/HCPCS: 45385; 45380; 88305; J2704; J7120